=== PATIENT | male | born 1950 | race Two or more races ===

== ENCOUNTER 2022-06-11 21:57 | Inpatient (IN) | payer MEDICARE, OTHER ==
[~2022-06-11] VITALS: Ht 177.8 cm; Wt 129.2 kg
[2022-06-11] MEDS ORDERED: SODIUM CHLORIDE 0.9% 500 ML IV ONE (22:30)
[2022-06-11] MEDS ORDERED: LACTATED RINGER S IV ONE (22:30)
[2022-06-11] MEDS ORDERED: DexAMETHasone SOD PHOS 10MG/1ML VIAL INJ IV ONE (22:30)
[2022-06-11 23:13] LABS: Albumin 3.2 g/dL (3.4-5.0); Calcium 8.3 mg/dL (8.5-10.1)
[2022-06-11 23:19] LABS: BUN/Creatinine Ratio 20.5; Bilirubin, Total 0.6 mg/dL (0.2-1.0); Potassium 5.7 mmol/L (3.5-5.1); Total Protein 7.6 g/dL (6.4-8.2)
[2022-06-11] MEDS ORDERED: DEXTROSE (50%) 50ML SYRG IV ONE (23:30)
[2022-06-11] MEDS ORDERED: InsuLIN REG 1unit/0.01ml Soln (100units/ml) IV ONE (23:30)
[2022-06-12] VITALS (12 sets, daily range): BP systolic 98–193; BP diastolic 63–107
[2022-06-12] MEDS ORDERED: DEXTROSE 10% 250 ML IV ONE
[2022-06-12 00:01] LABS: Basophils # (auto) 0.1 10 ^3/uL (0-0.2); Monocytes # (auto) 1.4 10 ^3/uL (0-1.3)
[2022-06-12 00:03] LABS: Basophils % (auto) 0.5 % (0.0-2.0); Eosinophils # (auto) 0.3 10 ^3/uL (0-0.8); Eosinophils % (auto) 3.1 % (0.0-7.0); Hematocrit 42.2 % (41.0-53.0); Lymphocytes # (auto) 1.6 10 ^3/uL (0.4-5.4); Lymphocytes % (auto) 16.7 % (10.0-50.0); Mean Corpuscular Hgb Conc. 33.2 g/dL (32.0-36.0); Mean Corpuscular Volume 102.4 fL (80.0-100.0); Neutrophils # (auto) 6.5 10 ^3/uL (1.6-8.6); Neutrophils % (auto) 65.7 % (37.0-80.0); Nucleated Red Blood Cells % 0.4 %; Red Blood Cells 4.12 10^6/uL (4.5-5.90); Red Cell Distribution Width 15.6 % (11.8-14.3); White Blood Cell 9.9 10^3/uL (4.4-10.8)
[2022-06-12] MEDS ORDERED: FUROSEMIDE 40 MG/4 ML VIAL IV ONE ×2 (00:45→07:30)
[2022-06-12] MEDS ORDERED: CALCIUM GLUC 1,000mg/50ml-NS 50 ML IV ONE ×2 (01:00→07:30)
[2022-06-12 04:08] LABS: Urine Bacteria NONE SEEN /hpf (None Seen); Urine Blood Negative /uL (Negative); Urine Hyaline Cast FEW /lpf (0 - 2); Urine Mucus FEW (None Seen); Urine Specific Gravity 1.018 (1.001-1.035); Urine WBC 1 /hpf (0 - 3)
[2022-06-12 04:21] LABS: Alcohol, Urine < 3.0 mg/dL (0-10); Amphetamine Screen, Urine NEGATIVE (NEGATIVE); Barbiturate Scree,Urine NEGATIVE (NEGATIVE); Benzodiazephine Screen, Urine NEGATIVE (NEGATIVE); Cannabinoid Screen, Urine NEGATIVE (NEGATIVE); Cocaine Screen, Urine NEGATIVE (NEGATIVE); Opiate Scree,Urine NEGATIVE (NEGATIVE); Phencyclidine Screen, Urine NEGATIVE (NEGATIVE)
[2022-06-12] MEDS ORDERED: ETOMIDATE (2MG/ML) 20ML VIAL IV ONE ×2 (04:21→04:30)
[2022-06-12] MEDS ORDERED: ROCURONIUM 10MG/ML 10ML VIAL IV ONE ×2 (04:22→04:30)
[2022-06-12] MEDS ORDERED: fentaNYL Drip 2500mCg/250mlNS 250 ML IV ONE (04:30)
[2022-06-12] MEDS ORDERED: MIDAZOLAM DRIP 50 mg/50mL 50 ML IV ONE (04:30)
[2022-06-12] MEDS ORDERED: METOPROLOL TARTRATE 1MG/1ML-5ML VIAL IV PRN (04:45)
[2022-06-12] MEDS ORDERED: hydrALAZINE HCL 20 MG/ML VL IV PRN (04:45)
[2022-06-12] MEDS ORDERED: ONDANSETRON HCL 4 MG/2 ML VIAL IV PRN (04:45)
[2022-06-12] MEDS ORDERED: ACETAMINOPHEN 650 MG RECT SUPP PR PRN (04:45)
[2022-06-12] MEDS: MIDAZOLAM DRIP 50 mg/50mL 50 ML IV SCH ×3 (04:50→22:08)
[2022-06-12] MEDS: fentaNYL Drip 2500mCg/250mlNS 250 ML IV SCH (05:00)
[2022-06-12] MEDS: methylPREDNISolone SOD SUCC 40 MG/ML VL IV SCH ×3 (05:51→22:12)
[2022-06-12] MEDS: SODIUM CHLORIDE 0.9% 1,000 ML IV SCH ×2 (05:59→22:11)
[2022-06-12 06:16] LABS: Basophils # (auto) 0 10 ^3/uL (0-0.2); Basophils % (auto) 0.2 % (0.0-2.0); Eosinophils # (auto) 0 10 ^3/uL (0-0.8); Eosinophils % (auto) 0.4 % (0.0-7.0); Hemoglobin 15.4 g/dL (13.5-17.5); Lymphocytes # (auto) 0.4 10 ^3/uL (0.4-5.4); Mean Corpuscular Hgb Conc. 33.1 g/dL (32.0-36.0); Neutrophils # (auto) 6.7 10 ^3/uL (1.6-8.6); White Blood Cell 7.4 10^3/uL (4.4-10.8)
[2022-06-12 06:17] LABS: Hematocrit 46.7 % (41.0-53.0); Lymphocytes % (auto) 5.7 % (10.0-50.0); Mean Corpuscular Hemoglobin 34.2 pg (28.0-32.0); Mean Corpuscular Volume 103.4 fL (80.0-100.0); Monocytes # (auto) 0.2 10 ^3/uL (0-1.3); Monocytes % (auto) 3.3 % (0.0-12.0); Neutrophils % (auto) 90.4 % (37.0-80.0); Nucleated Red Blood Cells % 0.3 %; Red Blood Cells 4.51 10^6/uL (4.5-5.90)
[2022-06-12] MEDS ORDERED: MORPHINE SULFATE INJ 2 MG/ml SYRG IV PRN (06:30)
[2022-06-12] MEDS ORDERED: NITROGLYCERIN 0.4 MG SL TAB SL PRN (06:30)
[2022-06-12 06:50] LABS: Albumin 3.5 g/dL (3.4-5.0); BUN/Creatinine Ratio 20.4; Bilirubin, Total 0.7 mg/dL (0.2-1.0); Calcium 8.7 mg/dL (8.5-10.1); Total Protein 8.7 g/dL (6.4-8.2)
[2022-06-12 06:56] LABS: Potassium 5.7 mmol/L (3.5-5.1)
[2022-06-12] MEDS ORDERED: SODIUM ZIRCONIUM CYCL 10 GM PAK PO ONE (07:30)
[2022-06-12] MEDS ORDERED: DEXTROSE (50%) 50ML SYRG IV ONE (07:30)
[2022-06-12] MEDS ORDERED: SODIUM BICARBONATE 8.4% INJ 50ML SYRINGE IV ONE (07:30)
[2022-06-12] MEDS ORDERED: InsuLIN REG 1unit/0.01ml Soln (100units/ml) IV ONE (07:30)
[2022-06-12] MEDS: FAMOTIDINE (10MG/ML) 2ML VL IV SCH (09:51)
[2022-06-12] MEDS: HEPARIN SODIUM (PORCINE) 5000 UNITS/ML 1ML VIAL SC SCH ×2 (09:52→22:12)
[2022-06-12] MEDS: AZITHROMYCIN 500MG/ 250ML 250 ML IV SCH (09:55)
[2022-06-12] MEDS ORDERED: METOPROLOL TARTRATE 1MG/1ML-5ML VIAL IV ONE (12:00)
[2022-06-12] MEDS ORDERED: AMIODARONE HCL 150 MG in D5W 5% 100 ML IV ONE (12:45)
[2022-06-12] MEDS ORDERED: AMIODARONE 450mg/250ml AE 250 ML IV SCH (13:00)
[2022-06-12 17:17] LABS: Protein, Urine 101.6 mg/dL (0.0-11.9)
[2022-06-12] MEDS: FUROSEMIDE 40 MG/4 ML VIAL IV SCH (17:31)
[2022-06-12] MEDS: AMIODARONE 450mg/250ml AE 250 ML IV SCH (18:54)
[2022-06-12] MEDS: ENOXAPARIN SOD 120 MG/0.8 ML SYRINGE SC SCH (22:14)
[2022-06-13] VITALS (13 sets, daily range): BP systolic 94–119; BP diastolic 60–78
[2022-06-13] MEDS: MIDAZOLAM DRIP 50 mg/50mL 50 ML IV SCH ×2 (03:30→22:06)
[2022-06-13] MEDS: methylPREDNISolone SOD SUCC 40 MG/ML VL IV SCH ×3 (06:40→22:02)
[2022-06-13] MEDS: FUROSEMIDE 40 MG/4 ML VIAL IV SCH ×2 (06:41→18:03)
[2022-06-13 06:47] LABS: Basophils # (auto) 0 10 ^3/uL (0-0.2); Basophils % (auto) 0.2 % (0.0-2.0); Eosinophils # (auto) 0 10 ^3/uL (0-0.8); Hematocrit 40.2 % (41.0-53.0); Hemoglobin 13.6 g/dL (13.5-17.5); Lymphocytes # (auto) 0.6 10 ^3/uL (0.4-5.4); Lymphocytes % (auto) 6.3 % (10.0-50.0); Mean Corpuscular Hemoglobin 33.7 pg (28.0-32.0); Mean Corpuscular Hgb Conc. 33.8 g/dL (32.0-36.0); Mean Corpuscular Volume 99.7 fL (80.0-100.0); Monocytes # (auto) 0.5 10 ^3/uL (0-1.3); Monocytes % (auto) 4.5 % (0.0-12.0); Nucleated Red Blood Cells % 0.3 %; Red Blood Cells 4.03 10^6/uL (4.5-5.90); Red Cell Distribution Width 15.3 % (11.8-14.3); White Blood Cell 10.1 10^3/uL (4.4-10.8)
[2022-06-13 07:04] LABS: Albumin 2.5 g/dL (3.4-5.0); Calcium 7.8 mg/dL (8.5-10.1); Potassium 4.5 mmol/L (3.5-5.1)
[2022-06-13 07:08] LABS: BUN/Creatinine Ratio 24.7; Bilirubin, Total 0.7 mg/dL (0.2-1.0); Phosphorus 3.6 mg/dL (2.5-4.90); Total Protein 6.4 g/dL (6.4-8.2); Uric Acid 7.9 mg/dL (3.5-7.2)
[2022-06-13] MEDS: AMIODARONE 450mg/250ml AE 250 ML IV SCH (08:00)
[2022-06-13] MEDS: fentaNYL Drip 2500mCg/250mlNS 250 ML IV SCH (08:00)
[2022-06-13] MEDS: AZITHROMYCIN 500MG/ 250ML 250 ML IV SCH (10:31)
[2022-06-13] MEDS: ENOXAPARIN SOD 120 MG/0.8 ML SYRINGE SC SCH ×2 (10:31→23:12)
[2022-06-13] MEDS: FAMOTIDINE (10MG/ML) 2ML VL IV SCH (10:31)
[2022-06-13] MEDS: HEPARIN SODIUM (PORCINE) 5000 UNITS/ML 1ML VIAL SC SCH ×2 (10:43→23:14)
[2022-06-13] MEDS ORDERED: FUROSEMIDE 40 MG/4 ML VIAL IV ONE (11:45)
[2022-06-13] MEDS: METOPROLOL TARTRATE 25 MG TAB PO SCH ×3 (12:23→21:54)
[2022-06-13] MEDS: AMIODARONE HCL 200 MG TAB PO SCH ×3 (12:23→21:42)
[2022-06-13] MEDS: SODIUM CHLORIDE 0.9% 1,000 ML IV SCH (14:07)
[2022-06-13 14:22] LABS: Urine Blood 3+ /uL (Negative)
[2022-06-13 23:07] LABS: INR 1.09 (0.9-1.15); Partial Thromboplastin Time 27.3 sec (24.6-33.4)
[2022-06-14] VITALS (10 sets, daily range): BP systolic 95–147; BP diastolic 56–89
[2022-06-14] MEDS: MIDAZOLAM DRIP 50 mg/50mL 50 ML IV SCH ×3 (02:10→16:00)
[2022-06-14] MEDS: AMIODARONE HCL 200 MG TAB PO SCH ×3 (06:00→22:12)
[2022-06-14] MEDS: METOPROLOL TARTRATE 25 MG TAB PO SCH ×2 (06:00→22:14)
[2022-06-14] MEDS: methylPREDNISolone SOD SUCC 40 MG/ML VL IV SCH ×3 (06:25→22:12)
[2022-06-14] MEDS: FUROSEMIDE 40 MG/4 ML VIAL IV SCH ×2 (06:26→18:00)
[2022-06-14 07:31] LABS: Basophils # (auto) 0 10 ^3/uL (0-0.2); Basophils % (auto) 0.2 % (0.0-2.0); Eosinophils # (auto) 0 10 ^3/uL (0-0.8); Hemoglobin 14.7 g/dL (13.5-17.5); Lymphocytes # (auto) 0.7 10 ^3/uL (0.4-5.4); Lymphocytes % (auto) 6.8 % (10.0-50.0); Mean Corpuscular Hgb Conc. 34.1 g/dL (32.0-36.0); Mean Corpuscular Volume 99.7 fL (80.0-100.0); Monocytes # (auto) 0.4 10 ^3/uL (0-1.3); Monocytes % (auto) 4.3 % (0.0-12.0); Neutrophils % (auto) 88.7 % (37.0-80.0); Nucleated Red Blood Cells % 0.3 %; Red Blood Cells 4.31 10^6/uL (4.5-5.90); Red Cell Distribution Width 15.7 % (11.8-14.3); White Blood Cell 10.1 10^3/uL (4.4-10.8)
[2022-06-14 07:52] LABS: Albumin 2.6 g/dL (3.4-5.0); Potassium 4.6 mmol/L (3.5-5.1)
[2022-06-14 07:57] LABS: BUN/Creatinine Ratio 25.4; Bilirubin, Total 0.6 mg/dL (0.2-1.0); Total Protein 6.7 g/dL (6.4-8.2)
[2022-06-14] MEDS: ENOXAPARIN SOD 120 MG/0.8 ML SYRINGE SC SCH ×2 (10:11→22:16)
[2022-06-14] MEDS: FAMOTIDINE (10MG/ML) 2ML VL IV SCH (10:11)
[2022-06-14] MEDS: AZITHROMYCIN 500MG/ 250ML 250 ML IV SCH (10:11)
[2022-06-14] MEDS: fentaNYL Drip 2500mCg/250mlNS 250 ML IV SCH ×2 (10:12→14:06)
[2022-06-14] MEDS: SODIUM CHLORIDE 0.9% 1,000 ML IV SCH (10:14)
[2022-06-14] MEDS ORDERED: DIGOXIN (250MCG/ML) 2 ML AMPULE IV ONE (10:15)
[2022-06-14] MEDS ORDERED: MAGNESIUM SULFATE 1GM/100ML 100 ML IV ONE (10:15)
[2022-06-14] MEDS: PHENYLEPHRINE INJ 80 MG in SODIUM CHL 0.9% 242 ML IV SCH (11:00)
[2022-06-14 11:45] LABS: Magnesium 1.9 mg/dL (1.6-2.6)
[2022-06-14] MEDS ORDERED: FUROSEMIDE 100 MG/10ML VIAL IV ONE (14:00)
[2022-06-14] MEDS ORDERED: ALBUMIN 25% 100 ML IV ONE (14:00)
[2022-06-14] MEDS ORDERED: hydrALAZINE HCL 20 MG/ML VL IV PRN (18:30)
[2022-06-15] VITALS (99 sets, daily range): BP systolic 99–158; BP diastolic 46–101
[2022-06-15 05:32] LABS: BUN/Creatinine Ratio 29.5; Calcium 8.1 mg/dL (8.5-10.1)
[2022-06-15] MEDS: methylPREDNISolone SOD SUCC 40 MG/ML VL IV SCH ×3 (05:47→21:27)
[2022-06-15] MEDS: AMIODARONE HCL 200 MG TAB PO SCH ×3 (05:47→21:28)
[2022-06-15] MEDS: FUROSEMIDE 40 MG/4 ML VIAL IV SCH ×2 (05:47→17:57)
[2022-06-15] MEDS: MIDAZOLAM DRIP 50 mg/50mL 50 ML IV SCH ×6 (05:48→23:28)
[2022-06-15] MEDS: METOPROLOL TARTRATE 25 MG TAB PO SCH ×2 (09:04→21:28)
[2022-06-15] MEDS: AZITHROMYCIN 500MG/ 250ML 250 ML IV SCH (09:04)
[2022-06-15] MEDS: FAMOTIDINE (10MG/ML) 2ML VL IV SCH (09:04)
[2022-06-15] MEDS: ENOXAPARIN SOD 120 MG/0.8 ML SYRINGE SC SCH ×2 (10:00→22:00)
[2022-06-15] MEDS ORDERED: DIGOXIN (250MCG/ML) 2 ML AMPULE IV SCH (10:00)
[2022-06-15] MEDS: PHENYLEPHRINE INJ 80 MG in SODIUM CHL 0.9% 242 ML IV SCH (10:27)
[2022-06-15] MEDS: ALBUMIN 25% 50 ML IV SCH ×2 (13:28→21:27)
[2022-06-15] MEDS: fentaNYL Drip 2500mCg/250mlNS 250 ML IV SCH (16:36)
[2022-06-15] MEDS: DAKINS QUARTER STR 0.125% (NaHypochlorite) 473 ML TOPICAL SOL TOP SCH (22:00)
[2022-06-16] VITALS (96 sets, daily range): BP systolic 97–147; BP diastolic 57–98
[2022-06-16] MEDS: ALBUMIN 25% 50 ML IV SCH (05:14)
[2022-06-16] MEDS: methylPREDNISolone SOD SUCC 40 MG/ML VL IV SCH ×3 (05:14→21:47)
[2022-06-16] MEDS: AMIODARONE HCL 200 MG TAB PO SCH ×3 (05:15→21:47)
[2022-06-16] MEDS: FUROSEMIDE 40 MG/4 ML VIAL IV SCH (05:15)
[2022-06-16 05:42] LABS: Basophils # (auto) 0 10 ^3/uL (0-0.2); Basophils % (auto) 0.2 % (0.0-2.0); Eosinophils # (auto) 0 10 ^3/uL (0-0.8); Hematocrit 42.4 % (41.0-53.0); Hemoglobin 14.4 g/dL (13.5-17.5); Lymphocytes # (auto) 0.4 10 ^3/uL (0.4-5.4); Lymphocytes % (auto) 6.5 % (10.0-50.0); Mean Corpuscular Hemoglobin 33.5 pg (28.0-32.0); Mean Corpuscular Hgb Conc. 33.9 g/dL (32.0-36.0); Mean Corpuscular Volume 98.6 fL (80.0-100.0); Monocytes # (auto) 0.3 10 ^3/uL (0-1.3); Monocytes % (auto) 4.3 % (0.0-12.0); Neutrophils # (auto) 5.8 10 ^3/uL (1.6-8.6); Nucleated Red Blood Cells % 0.3 %; White Blood Cell 6.5 10^3/uL (4.4-10.8)
[2022-06-16 05:54] LABS: Potassium 4.1 mmol/L (3.5-5.1)
[2022-06-16 05:59] LABS: Albumin 3.1 g/dL (3.4-5.0); BUN/Creatinine Ratio 34.5; Bilirubin, Total 0.8 mg/dL (0.2-1.0); Calcium 7.6 mg/dL (8.5-10.1); Total Protein 6.2 g/dL (6.4-8.2)
[2022-06-16] MEDS: MIDAZOLAM DRIP 50 mg/50mL 50 ML IV SCH ×4 (06:00→21:34)
[2022-06-16] MEDS: fentaNYL Drip 2500mCg/250mlNS 250 ML IV SCH ×2 (08:50→20:36)
[2022-06-16] MEDS: AZITHROMYCIN 500MG/ 250ML 250 ML IV SCH (09:21)
[2022-06-16] MEDS: FAMOTIDINE (10MG/ML) 2ML VL IV SCH (09:21)
[2022-06-16] MEDS: METOPROLOL TARTRATE 25 MG TAB PO SCH ×2 (09:22→21:48)
[2022-06-16] MEDS: DAKINS QUARTER STR 0.125% (NaHypochlorite) 473 ML TOPICAL SOL TOP SCH ×2 (09:24→22:04)
[2022-06-16] MEDS: ENOXAPARIN SOD 120 MG/0.8 ML SYRINGE SC SCH ×2 (10:00→21:48)
[2022-06-16] MEDS: IPRATROPIUM BROM 0.5 MG/2.5ML INH SOL NEB SCH ×4 (10:31→21:59)
[2022-06-16] MEDS: ALBUTEROL MEDNEB 2.5 mg/3ml NEB NEB SCH ×4 (10:31→21:59)
[2022-06-16] MEDS: PHENYLEPHRINE INJ 80 MG in SODIUM CHL 0.9% 242 ML IV SCH (11:00)
[2022-06-16] MEDS: PROPOFOL 100 ML IV SCH (11:06)
[2022-06-16] MEDS ORDERED: CEFTRIAXONE SODIUM 2 GM in D5W 5% 100 ML IV ONE (13:45)
[2022-06-16] MEDS ORDERED: IPRATROPIUM BROM 0.5 MG/2.5ML INH SOL NEB SCH (14:00)
[2022-06-16] MEDS ORDERED: ALBUTEROL SULF 2.5 MG/0.5ML(0.5%) NEB SOLN NEB SCH (14:00)
[2022-06-17] VITALS (95 sets, daily range): BP systolic 88–158; BP diastolic 49–89
[2022-06-17] MEDS: MIDAZOLAM DRIP 50 mg/50mL 50 ML IV SCH ×6 (01:09→23:38)
[2022-06-17] MEDS: IPRATROPIUM BROM 0.5 MG/2.5ML INH SOL NEB SCH ×6 (01:56→22:00)
[2022-06-17] MEDS: ALBUTEROL MEDNEB 2.5 mg/3ml NEB NEB SCH ×6 (01:56→22:00)
[2022-06-17] MEDS: PROPOFOL 100 ML IV SCH (03:46)
[2022-06-17] MEDS: methylPREDNISolone SOD SUCC 40 MG/ML VL IV SCH ×3 (05:39→21:47)
[2022-06-17] MEDS: AMIODARONE HCL 200 MG TAB PO SCH ×2 (05:39→21:48)
[2022-06-17 06:15] LABS: Basophils # (auto) 0 10 ^3/uL (0-0.2); Basophils % (auto) 0.2 % (0.0-2.0); Eosinophils # (auto) 0 10 ^3/uL (0-0.8); Hematocrit 42.5 % (41.0-53.0); Hemoglobin 14.1 g/dL (13.5-17.5); Lymphocytes # (auto) 0.2 10 ^3/uL (0.4-5.4); Mean Corpuscular Hemoglobin 33.2 pg (28.0-32.0); Mean Corpuscular Hgb Conc. 33.2 g/dL (32.0-36.0); Mean Corpuscular Volume 99.9 fL (80.0-100.0); Monocytes # (auto) 0.4 10 ^3/uL (0-1.3); Monocytes % (auto) 4.4 % (0.0-12.0); Neutrophils # (auto) 7.6 10 ^3/uL (1.6-8.6); Neutrophils % (auto) 93.4 % (37.0-80.0); Nucleated Red Blood Cells % 0.1 %; Red Blood Cells 4.25 10^6/uL (4.5-5.90); Red Cell Distribution Width 14.8 % (11.8-14.3); White Blood Cell 8.1 10^3/uL (4.4-10.8)
[2022-06-17 06:25] LABS: BUN/Creatinine Ratio 29.9; Calcium 7.4 mg/dL (8.5-10.1); Potassium 4.3 mmol/L (3.5-5.1)
[2022-06-17] MEDS: fentaNYL Drip 2500mCg/250mlNS 250 ML IV SCH ×2 (08:12→19:52)
[2022-06-17] MEDS: METOPROLOL TARTRATE 25 MG TAB PO SCH ×2 (09:45→21:48)
[2022-06-17] MEDS: FAMOTIDINE (10MG/ML) 2ML VL IV SCH (09:45)
[2022-06-17] MEDS: CEFTRIAXONE SODIUM 2 GM in D5W 5% 100 ML IV SCH (09:46)
[2022-06-17] MEDS: AZITHROMYCIN 500MG/ 250ML 250 ML IV SCH (09:46)
[2022-06-17] MEDS: DAKINS QUARTER STR 0.125% (NaHypochlorite) 473 ML TOPICAL SOL TOP SCH ×2 (09:57→21:48)
[2022-06-17] MEDS: ENOXAPARIN SOD 120 MG/0.8 ML SYRINGE SC SCH (09:58)
[2022-06-17] MEDS ORDERED: FUROSEMIDE 40 MG/4 ML VIAL IV SCH (10:00)
[2022-06-17] MEDS: PHENYLEPHRINE INJ 80 MG in SODIUM CHL 0.9% 242 ML IV SCH ×2 (11:00→19:50)
[2022-06-17] MEDS ORDERED: ENOXAPARIN SOD 30 MG/0.3 ML SYRINGE SC ONE (12:45)
[2022-06-17] MEDS ORDERED: FUROSEMIDE 40 MG/4 ML VIAL IV ONE (14:00)
[2022-06-17] MEDS ORDERED: TPN PER PHARMACY 0 ML IV SCH (14:00)
[2022-06-17] MEDS ORDERED: AMINO ACID INFUSION IN D10W 1,000 ML IV NR (20:00)
[2022-06-18] VITALS (93 sets, daily range): BP systolic 92–137; BP diastolic 54–77
[2022-06-18] MEDS: ALBUTEROL MEDNEB 2.5 mg/3ml NEB NEB SCH ×5 (02:00→18:23)
[2022-06-18] MEDS: IPRATROPIUM BROM 0.5 MG/2.5ML INH SOL NEB SCH ×5 (02:00→18:23)
[2022-06-18] MEDS: MIDAZOLAM DRIP 50 mg/50mL 50 ML IV SCH ×4 (03:37→17:26)
[2022-06-18] MEDS: methylPREDNISolone SOD SUCC 40 MG/ML VL IV SCH (05:59)
[2022-06-18 07:14] LABS: Potassium 4.4 mmol/L (3.5-5.1)
[2022-06-18] MEDS: FAMOTIDINE (10MG/ML) 2ML VL IV SCH (07:54)
[2022-06-18] MEDS: PROPOFOL 100 ML IV SCH (07:55)
[2022-06-18] MEDS: CEFTRIAXONE SODIUM 2 GM in D5W 5% 100 ML IV SCH (07:55)
[2022-06-18 07:56] LABS: Albumin 3.7 g/dL (3.4-5.0); BUN/Creatinine Ratio 34.3; Bilirubin, Total 0.6 mg/dL (0.2-1.0); Calcium 7.3 mg/dL (8.5-10.1); Magnesium 2.7 mg/dL (1.6-2.6); Total Protein 6.4 g/dL (6.4-8.2)
[2022-06-18] MEDS: AMIODARONE HCL 200 MG TAB PO SCH ×2 (09:31→22:00)
[2022-06-18] MEDS: DAKINS QUARTER STR 0.125% (NaHypochlorite) 473 ML TOPICAL SOL TOP SCH (09:31)
[2022-06-18] MEDS: METOPROLOL TARTRATE 25 MG TAB PO SCH ×2 (09:31→22:00)
[2022-06-18] MEDS: AZITHROMYCIN 500MG/ 250ML 250 ML IV SCH (09:31)
[2022-06-18] MEDS: fentaNYL Drip 2500mCg/250mlNS 250 ML IV SCH (09:45)
[2022-06-18] MEDS ORDERED: ENOXAPARIN SOD 30 MG/0.3 ML SYRINGE SC SCH (10:00)
[2022-06-18] MEDS ORDERED: CALCIUM GLUC 4.65meq/50ml D5AE 50 ML IV ONE (10:45)
[2022-06-18] MEDS: ACCU-CHEK COMFORT CURVE STRIP VI SCH ×2 (11:13→17:13)
[2022-06-18] MEDS: InsuLIN REG 1unit/0.01ml Soln (100units/ml) SC SCH ×2 (11:14→17:08)
[2022-06-18] MEDS ORDERED: GLYCOPYRROLATE 0.2 MG/ML 1ML VIAL IV PRN (11:45)
[2022-06-18] MEDS ORDERED: DEXTROSE (50%) 50ML SYRG IV SCH (12:00)
[2022-06-18] MEDS ORDERED: SODIUM CHLORIDE 0.9% 1,000 ML IV SCH (16:45)
[2022-06-18] MEDS ORDERED: ALBUTEROL SULF 2.5 MG/0.5ML(0.5%) NEB SOLN ONE (17:38)
[2022-06-18] MEDS ORDERED: TPN PER PHARMACY IV NR ×6 (20:00)
[2022-06-18] MEDS ORDERED: LORazepam 2MG/ML-1ML VIAL IV PRN (21:00)
[2022-06-18] MEDS ORDERED: MORPHINE SULFATE INJ 2 MG/ml SYRG IV PRN (21:00)
[2022-06-18] MEDS ORDERED: methylPREDNISolone SOD SUCC 40 MG/ML VL IV SCH (22:00)
[2022-06-18] MEDS ORDERED: ALBUTEROL SULF 2.5 MG/0.5ML(0.5%) NEB SOLN NEB SCH (22:00)
[2022-06-19] VITALS (19 sets, daily range): BP systolic 100–127; BP diastolic 61–70
[2022-06-19] MEDS: ACCU-CHEK COMFORT CURVE STRIP VI SCH
[2022-06-19] MEDS: InsuLIN REG 1unit/0.01ml Soln (100units/ml) SC SCH
[2022-06-19] MEDS: DAKINS QUARTER STR 0.125% (NaHypochlorite) 473 ML TOPICAL SOL TOP SCH (00:57)
[2022-06-19] MEDS ORDERED: ENOXAPARIN SOD 30 MG/0.3 ML SYRINGE SC SCH (10:00)
== END 2022-06-19 10:40 | DRG 207 ==
LOC: ER 21:57 → EDBD 21:57 → TELE 06-12 06:23 → ICU CENTRL 06-14 23:38
PROVIDERS: ADMIT Obstetrics & Gynecology; ATTEND Internal Medicine
PROC: 0BH17EZ Insertion of Endotracheal Airway into Trachea, Via Natural or Artificial Opening (ICD-10-PCS; 2022-06-11)
PROC: 5A09357 Assistance with Respiratory Ventilation, Less than 24 Consecutive Hours, Continuous Positive Airway Pressure (ICD-10-PCS; 2022-06-11)
PROC: 5A1955Z Respiratory Ventilation, Greater than 96 Consecutive Hours (ICD-10-PCS; principal; 2022-06-12)
PROC: 06HY33Z Insertion of Infusion Device into Lower Vein, Percutaneous Approach (ICD-10-PCS; 2022-06-13)
DX: J18.9 Pneumonia, unspecified organism (principal); J96.02 Acute respiratory failure with hypercapnia; N17.0 Acute kidney failure with tubular necrosis; J96.21 Acute and chronic respiratory failure with hypoxia; J44.1 Chronic obstructive pulmonary disease with (acute) exacerbation; I13.0 Hypertensive heart and chronic kidney disease with heart failure and stage 1 through stage 4 chronic kidney disease, or unspecified chronic kidney disease; I48.92 Unspecified atrial flutter; I50.20 Unspecified systolic (congestive) heart failure; J44.0 Chronic obstructive pulmonary disease with (acute) lower respiratory infection; I48.20 Chronic atrial fibrillation, unspecified; N39.0 Urinary tract infection, site not specified; Z68.41 Body mass index [BMI] 40.0-44.9, adult; Z20.822 Contact with and (suspected) exposure to COVID-19; E66.01 Morbid (severe) obesity due to excess calories; E87.5 Hyperkalemia; E88.09 Other disorders of plasma-protein metabolism, not elsewhere classified; N18.32 Chronic kidney disease, stage 3b; F17.210 Nicotine dependence, cigarettes, uncomplicated
CPT/HCPCS: 31500; 36415; 36600; 70450; 71045; 71250; 72125; 74176; 80048; 80053; 80061; 80307; 81001; 81003; 82570; 82805; 82962; 83036; 83605; 83735; 83880; 84100; 84132; 84156; 84300; 84443; 84484; 84550; 85025; 85610; 85730; 86850; 86900; 86901; 87040; 87070; 87081; 87086; 87205; 87426; 87804; 93005; 93306; 94002; 94003; 94640; 94660; 96361; 96365; 96375; 99291; G0378; J0610; J0696; J1100; J1815; J2250; J2704; J3490; J7060; P9047